=== PATIENT | male | born 1965 | race Caucasian/White ===

== ENCOUNTER 2017-11-19 22:53 | Inpatient (IN) | payer OTHER ==
[~2017-11-19] VITALS: Ht 177.8 cm; Wt 60.4 kg
--- NOTE | ~2017-11-19 | O ---
[place], [place] OPERATIVE NOTE [id number] UNIT #: [id number] ROOM: [place] [address] DOCTOR: MICHAEL BARROSO MD BIRTHDATE: [birth year] DOS: 11/20/2017 PREOPERATIVE DIAGNOSIS: Perforated viscus. POSTOPERATIVE DIAGNOSIS: Perforated duodenal ulcer. PROCEDURES: Exploratory laparotomy, repair of perforated duodenal ulcer with a Osito patch. SURGEON: Michael Barroso MD MANAGER CULTURE: MSThomas. ANESTHESIA: GET. INDICATIONS: This is a 52-year-old gentleman with a known history of peptic ulcer disease, who came into the Emergency Room with increasing abdominal pain. A CAT scan revealed perforated viscus. After resuscitation, the patient was taken to the operating room in an urgent fashion for repair. The procedure and its complications were explained to the patient in detail preoperatively. Complications that were discussed included but were not limited to bleeding, abscess formation, prolonged postoperative pain, damage to underlying vital structures and incisional hernia formation. He agreed to proceed. DESCRIPTION OF PROCEDURE: After identifying the patient, the patient was brought to the operating suite and laid in the supine position. After general anesthesia was induced by the anesthesia team, a timeout procedure was called. A Kulkarni catheter was placed into the urinary bladder and the parts were then painted and draped in the usual sterile fashion. An upper midline incision was made. The skin and the subcutaneous tissue were incised. The fascia was incised and the peritoneum was opened. The areas around the pylorus and the liver were found to have a lot of fibular purulent material and upon further dissection an obvious perforated ulcer was found on the anterior part of the second part of the duodenum. The prepyloric ulceration was found and a perforation was seen. This area was freshened by excising tissue around the ulcer and sent for histopathological diagnosis. Thereafter, the ulcer itself was approximated by taking sutures with 3-0 silk in an interrupted fashion. After the sutures were tied, a patch of omentum was brought over and enclosed in the suture line in order to further strengthen the repair. Thereafter, copious amounts of saline was used for irrigation and after hemostasis was confirmed, the fascia was approximated with the help of 0 PDS in a running fashion. The skin edges were infiltrated with 1% plain lidocaine and approximated with the help of shivani. Dressing was placed. The patient tolerated the procedure well and was extubated and brought back to the recovery room in stable fashion. There were no complications. Dr. Michael Barroso, the attending surgeon, was present throughout the operating case. Blood loss was less than 50 mL. [place], [place] OPERATIVE NOTE NAME: KENNY MENDEZ UNIT #: [id number] ROOM: [place] [address] DOCTOR: MICHAEL BARROSO MD BIRTHDATE: [birth year] Michael Barrsoo MD CM:OPRECORD:OPERATIVE NOTE [id number] MICHAEL BARROSO MD 11/20/17 0902 interface
[~2017-11-19 22:53] MED LIST: PROTONIX40 MG PO
[2017-11-19 23:00] VITALS: BP 109/62
[2017-11-19 23:37] LABS: BASO # 0.1 10*3/uL (0.0-0.1); BASO % 0.3 % (0.0-1.0); EOS # 0.1 10*3/uL (0.0-0.4); EOS % 0.6 % (1.0-4.0); HEMATOCRIT 47.9 % (42.0-52.0); HEMOGLOBIN 16.2 g/dl (14.0-18.0); LYMPH # 1.5 10*3/uL (1.3-4.4); LYMPH % 7.1 % (27.0-41.0); MEAN CELL VOLUME 93.2 fl (80.0-94.0); MEAN CORPUSCULAR HGB 31.5 pg (27.0-31.0); MEAN CORPUSCULAR HGB CONC 33.8 g/dl (33.0-37.0); MEAN PLATELET VOLUME 10.9 fl (9.6-12.3); MONO # 1.1 10*3/uL (0.1-1.0); NEUT # 18.4 10*3/uL (2.3-7.9); NEUT % 86.6 % (47.0-73.0); PLATELET COUNT AUTOMATED 209 10*3/uL (130-400); RED BLOOD COUNT 5.14 10*6/uL (4.50-5.90); RED CELL DISTRI WIDTH 14.1 % (0-14.5); WHITE BLOOD COUNT 21.2 10*3/uL (4.8-10.8)
[2017-11-19 23:52] LABS: ALBUMIN 4.2 gm/dl (3.1-4.5); ALKALINE PHOSPHATASE 86 U/L (45-117); BUN 19 mg/dl (7-24); CHLORIDE 98 mmol/L (98-107); CREATININE 1.05 mg/dL (0.70-1.30); LIPASE 95 U/L (73-393); POTASSIUM 4.4 mmol/L (3.5-5.1); SGOT/AST 9 IU/L (3-35); SGPT/ALT 16 U/L (12-78); SODIUM 132 mmol/L (136-145); TOTAL PROTEIN 7.5 gm/dL (6.4-8.2)
[2017-11-19 23:57] LABS: BILIRUBIN 1+ (NEGATIVE); BLOOD NEGATIVE (NEGATIVE); CLARITY SL CLOUDY (CLEAR); COLOR YELLOW (YELLOW); GLUCOSE NEGATIVE (NEGATIVE); KETONE NEGATIVE (NEGATIVE); LEUKO ESTERASE NEGATIVE (NEGATIVE); NITRITE NEGATIVE (NEGATIVE); SPECIFIC GRAVITY >= 1.030 (1.005-1.030); UROBILINOGEN 0.2 E.U./dl (0.2-1.0)
[2017-11-20] VITALS (17 sets, daily range): BP systolic 100–141; BP diastolic 47–76
[2017-11-20 00:02] LABS: HYALINE CAST 35-40
[2017-11-20 00:03] LABS: WBC 0-2 wbc/hpf (0-5)
[2017-11-20 00:04] LABS: MUCOUS 1+
[2017-11-20 00:28] LABS: URINE AMPHETAMINES < 1000 (1000ng/ml); URINE BARBITURATES < 200 (200ng/ml); URINE BENZODIAZEPINES < 200 (200ng/ml); URINE CANNABINOIDS (THC) < 50 (50ng/ml); URINE COCAINE < 300 (300ng/ml); URINE METHADONE < 300 (300ng/ml); URINE OPIATES > 300 (300ng/ml)
[2017-11-20 00:29] LABS: URINE PHENCYCLIDINE < 25 (25ng/ml)
[2017-11-20 04:36] LABS: ACT PARTIAL THROMBO TIME 22.8 SECONDS (20.8-31.5); INTERNATIONAL NORM RATIO 1.1 (2.0-3.5)
[2017-11-20 04:53] LABS: ALBUMIN 3.3 gm/dl (3.1-4.5); ALKALINE PHOSPHATASE 71 U/L (45-117); BUN 15 mg/dl (7-24); CHLORIDE 104 mmol/L (98-107); CHOLESTEROL 146 mg/dL (<200); CREATININE 0.99 mg/dL (0.70-1.30); PHOSPHOROUS 3.4 mg/dL (2.5-4.9); POTASSIUM 4.2 mmol/L (3.5-5.1); SGOT/AST 15 IU/L (3-35); SGPT/ALT 19 U/L (12-78); SODIUM 136 mmol/L (136-145); TOTAL PROTEIN 6.3 gm/dL (6.4-8.2); TRIGLYCERIDES 65 mg/dl (<150); VLDL CHOLESTEROL 13 mg/dL (6-40)
[2017-11-20 04:59] LABS: HDL CHOLESTEROL 31 mg/dl (40-60); LDL CHOLESTEROL 102 mg/dL (9-159); THYROID STIM HORMONE (HS) 0.383 uIU/ml (0.358-4.75)
[2017-11-20 05:54] LABS: HEMATOCRIT 46.1 % (42.0-52.0); HEMOGLOBIN 15.2 g/dl (14.0-18.0); MEAN CELL VOLUME 95.6 fl (80.0-94.0); MEAN CORPUSCULAR HGB 31.5 pg (27.0-31.0); MEAN PLATELET VOLUME 11.7 fl (9.6-12.3); PLATELET COUNT AUTOMATED 169 10*3/uL (130-400); RED BLOOD COUNT 4.82 10*6/uL (4.50-5.90); RED CELL DISTRI WIDTH 14.3 % (0-14.5); WHITE BLOOD COUNT 14.6 10*3/uL (4.8-10.8)
[2017-11-20 06:53] LABS: ATYPICAL LYMPHS 1 % (0-0); BURR CELLS FEW; PLATELET SUFFICIENCY NORMAL (NORMAL); TOTAL CELLS COUNTED 100 #CELLS
[2017-11-20 07:08] LABS: VITAMIN D, 25-HYDROXY 18.8 ng/mL (30-100)
[2017-11-21] VITALS: BP 123/73
[2017-11-21 04:00] VITALS: BP 120/82
[2017-11-21 05:44] LABS: ALBUMIN 2.8 gm/dl (3.1-4.5); ALKALINE PHOSPHATASE 62 U/L (45-117); BUN 14 mg/dl (7-24); CHLORIDE 106 mmol/L (98-107); CREATININE 1.02 mg/dL (0.70-1.30); POTASSIUM 3.8 mmol/L (3.5-5.1); SGOT/AST 17 IU/L (3-35); SGPT/ALT 16 U/L (12-78); SODIUM 138 mmol/L (136-145); TOTAL PROTEIN 6.1 gm/dL (6.4-8.2)
[2017-11-21 05:48] LABS: BASO % 0.1 % (0.0-1.0); EOS % 0.1 % (1.0-4.0); HEMATOCRIT 41.9 % (42.0-52.0); HEMOGLOBIN 13.9 g/dl (14.0-18.0); LYMPH # 1.4 10*3/uL (1.3-4.4); MEAN CELL VOLUME 93.7 fl (80.0-94.0); MEAN CORPUSCULAR HGB 31.1 pg (27.0-31.0); MEAN CORPUSCULAR HGB CONC 33.2 g/dl (33.0-37.0); MEAN PLATELET VOLUME 11.9 fl (9.6-12.3); MONO # 0.9 10*3/uL (0.1-1.0); MONO % 5.6 % (3.0-9.0); NEUT # 12.8 10*3/uL (2.3-7.9); NEUT % 84.4 % (47.0-73.0); PLATELET COUNT AUTOMATED 155 10*3/uL (130-400); RED BLOOD COUNT 4.47 10*6/uL (4.50-5.90); RED CELL DISTRI WIDTH 14.5 % (0-14.5); WHITE BLOOD COUNT 15.2 10*3/uL (4.8-10.8)
[2017-11-21 08:00] VITALS: BP 131/74
[2017-11-21 12:00] VITALS: BP 128/69
[2017-11-21 16:00] VITALS: BP 100/47
[2017-11-21 20:00] VITALS: BP 140/80
[2017-11-22] VITALS: BP 149/72
[2017-11-22 06:19] LABS: BASO % 0.2 % (0.0-1.0); EOS % 0.1 % (1.0-4.0); HEMATOCRIT 41.1 % (42.0-52.0); HEMOGLOBIN 13.8 g/dl (14.0-18.0); LYMPH # 1.4 10*3/uL (1.3-4.4); LYMPH % 9.7 % (27.0-41.0); MEAN CELL VOLUME 92.6 fl (80.0-94.0); MEAN CORPUSCULAR HGB 31.1 pg (27.0-31.0); MEAN CORPUSCULAR HGB CONC 33.6 g/dl (33.0-37.0); MEAN PLATELET VOLUME 11.9 fl (9.6-12.3); MONO # 0.8 10*3/uL (0.1-1.0); MONO % 5.5 % (3.0-9.0); NEUT # 11.8 10*3/uL (2.3-7.9); NEUT % 83.9 % (47.0-73.0); PLATELET COUNT AUTOMATED 160 10*3/uL (130-400); RED BLOOD COUNT 4.44 10*6/uL (4.50-5.90); WHITE BLOOD COUNT 14.1 10*3/uL (4.8-10.8)
[2017-11-22 06:38] LABS: BUN 15 mg/dl (7-24); CHLORIDE 104 mmol/L (98-107); CREATININE 0.88 mg/dL (0.70-1.30); POTASSIUM 3.6 mmol/L (3.5-5.1); SODIUM 137 mmol/L (136-145)
[2017-11-22 08:00] VITALS: BP 139/66
[2017-11-22 12:00] VITALS: BP 131/85
[2017-11-22 16:00] VITALS: BP 135/76
[2017-11-22 20:06] VITALS: BP 137/83
[2017-11-23] VITALS: BP 126/88
[2017-11-23 07:10] LABS: BASO % 0.4 % (0.0-1.0); EOS # 0.2 10*3/uL (0.0-0.4); EOS % 2.1 % (1.0-4.0); HEMATOCRIT 44.2 % (42.0-52.0); HEMOGLOBIN 14.7 g/dl (14.0-18.0); LYMPH # 1.5 10*3/uL (1.3-4.4); LYMPH % 13.9 % (27.0-41.0); MEAN CELL VOLUME 92.5 fl (80.0-94.0); MEAN CORPUSCULAR HGB 30.8 pg (27.0-31.0); MEAN CORPUSCULAR HGB CONC 33.3 g/dl (33.0-37.0); MEAN PLATELET VOLUME 11.6 fl (9.6-12.3); MONO # 0.7 10*3/uL (0.1-1.0); MONO % 5.9 % (3.0-9.0); NEUT # 8.5 10*3/uL (2.3-7.9); NEUT % 77.3 % (47.0-73.0); PLATELET COUNT AUTOMATED 189 10*3/uL (130-400); RED BLOOD COUNT 4.78 10*6/uL (4.50-5.90); RED CELL DISTRI WIDTH 13.9 % (0-14.5)
[2017-11-23 07:39] LABS: BUN 13 mg/dl (7-24); CHLORIDE 103 mmol/L (98-107); CREATININE 0.93 mg/dL (0.70-1.30); POTASSIUM 3.1 mmol/L (3.5-5.1); SODIUM 138 mmol/L (136-145)
[2017-11-23 08:00] VITALS: BP 119/75
[2017-11-23] MEDS ORDERED: PROTONIX40 MG PO (12:11)
[2017-11-23] MEDS ORDERED: PEPCID20 MG PO (12:11)
[2017-11-23] MEDS ORDERED: LEVAQUIN750 M1 PO (12:11)
[2017-11-23] MEDS ORDERED: NORCO 5-325 TA1 EACH PO (12:13)
== END 2017-11-23 13:06 | disposition home or self-care (01) | DRG 853 ==
LOC: ED 22:53 → EDHOLD 11-20 02:35 → 4E 11-20 02:35 → ICCU 11-20 02:35 → 4E 11-21 17:31
PROVIDERS: Internal Medicine; Nurse Practitioner; Surgery
PROC: 0DU907Z Supplement Duodenum with Autologous Tissue Substitute, Open Approach (ICD-10-PCS; principal; 2017-11-20)
DX: A41.9 Sepsis, unspecified organism (principal); K26.5 Chronic or unspecified duodenal ulcer with perforation; I95.9 Hypotension, unspecified; R82.2 Biliuria; E87.1 Hypo-osmolality and hyponatremia; R65.20 Severe sepsis without septic shock; K59.00 Constipation, unspecified; R00.1 Bradycardia, unspecified; F11.10 Opioid abuse, uncomplicated; E78.5 Hyperlipidemia, unspecified; R73.9 Hyperglycemia, unspecified; F12.90 Cannabis use, unspecified, uncomplicated; Z72.0 Tobacco use; Z71.6 Tobacco abuse counseling; Z87.11 Personal history of peptic ulcer disease; Z88.0 Allergy status to penicillin; Z83.3 Family history of diabetes mellitus; Z82.49 Family history of ischemic heart disease and other diseases of the circulatory system; Z80.8 Family history of malignant neoplasm of other organs or systems

== ENCOUNTER → 2017-12-04 | Outpatient (CLI) | payer OTHER ==
[~2017-12-04] MED LIST changes: +LEVAQUIN750 M1 PO; +NORCO 5-325 TA1 EACH PO; +PEPCID20 MG PO
== END | disposition home or self-care (01) ==
LOC: RESCLI 02:02
DX: K26.5 Chronic or unspecified duodenal ulcer with perforation (principal); R63.6 Underweight; I95.9 Hypotension, unspecified; E55.9 Vitamin D deficiency, unspecified; R73.03 Prediabetes; F12.90 Cannabis use, unspecified, uncomplicated; F11.90 Opioid use, unspecified, uncomplicated; F17.210 Nicotine dependence, cigarettes, uncomplicated; Z71.6 Tobacco abuse counseling

== ENCOUNTER 2018-08-21 15:58 | Inpatient (IN) | payer OTHER ==
[~2018-08-21] VITALS: Ht 180.3 cm; Wt 61.2 kg
--- NOTE | ~2018-08-21 | EKG ---
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
[2018-08-21 15:58] VITALS: BP 138/88
[2018-08-21 16:28] VITALS: BP 127/79
[2018-08-21 16:42] LABS: BASO # 0.1 10*3/uL (0.0-0.1); BASO % 0.7 % (0.0-1.0); EOS # 0.2 10*3/uL (0.0-0.4); EOS % 2.1 % (1.0-4.0); HEMATOCRIT 51.5 % (42.0-52.0); HEMOGLOBIN 16.6 g/dl (14.0-18.0); LYMPH # 1.7 10*3/uL (1.3-4.4); LYMPH % 21.2 % (27.0-41.0); MEAN CELL VOLUME 98.3 fl (80.0-94.0); MEAN CORPUSCULAR HGB 31.7 pg (27.0-31.0); MEAN CORPUSCULAR HGB CONC 32.2 g/dl (33.0-37.0); MEAN PLATELET VOLUME 10.8 fl (9.6-12.3); MONO # 0.5 10*3/uL (0.1-1.0); MONO % 5.6 % (3.0-9.0); NEUT # 5.7 10*3/uL (2.3-7.9); NEUT % 69.7 % (47.0-73.0); PLATELET COUNT AUTOMATED 265 10*3/uL (130-400); RED BLOOD COUNT 5.24 10*6/uL (4.50-5.90); RED CELL DISTRI WIDTH 15.2 % (0-14.5); WHITE BLOOD COUNT 8.2 10*3/uL (4.8-10.8)
[2018-08-21 16:57] LABS: ALBUMIN 3.6 gm/dl (3.1-4.5); ALKALINE PHOSPHATASE 115 U/L (45-117); BUN 11 mg/dl (7-24); CHLORIDE 106 mmol/L (98-107); CREATININE 1.17 mg/dL (0.70-1.30); LIPASE 405 U/L (73-393); POTASSIUM 4.4 mmol/L (3.5-5.1); SGOT/AST 42 IU/L (3-35); SGPT/ALT 28 U/L (12-78); SODIUM 140 mmol/L (136-145); TOTAL PROTEIN 8.1 gm/dL (6.4-8.2)
[2018-08-21 16:59] LABS: TROPONIN I < 0.015 ng/ml (<0.045)
[2018-08-21 17:19] VITALS: BP 111/68
[2018-08-21 17:40] VITALS: BP 113/70
[2018-08-21 18:09] VITALS: BP 121/76
[2018-08-21 18:43] VITALS: BP 114/84
[2018-08-21 22:02] LABS: URINE AMPHETAMINES < 1000 (1000ng/ml); URINE BARBITURATES < 200 (200ng/ml); URINE BENZODIAZEPINES < 200 (200ng/ml); URINE CANNABINOIDS (THC) < 50 (50ng/ml); URINE COCAINE < 300 (300ng/ml); URINE METHADONE < 300 (300ng/ml); URINE OPIATES > 300 (300ng/ml)
[2018-08-21 22:03] LABS: URINE PHENCYCLIDINE < 25 (25ng/ml)
[2018-08-22] VITALS: BP 106/70
[2018-08-22 00:23] LABS: BILIRUBIN NEGATIVE (NEGATIVE); BLOOD NEGATIVE (NEGATIVE); CLARITY CLEAR (CLEAR); COLOR YELLOW (YELLOW); GLUCOSE 1+ (NEGATIVE); KETONE NEGATIVE (NEGATIVE); LEUKO ESTERASE NEGATIVE (NEGATIVE); NITRITE NEGATIVE (NEGATIVE); SPECIFIC GRAVITY 1.025 (1.005-1.030); UROBILINOGEN 0.2 E.U./dl (0.2-1.0)
[2018-08-22 00:30] LABS: RBC 0-2 rbc/hpf (0-2); WBC 0-2 wbc/hpf (0-5)
[2018-08-22 04:00] VITALS: BP 110/70
[2018-08-22 04:34] LABS: BASO % 0.3 % (0.0-1.0); EOS # 0.1 10*3/uL (0.0-0.4); EOS % 0.9 % (1.0-4.0); HEMATOCRIT 47.4 % (42.0-52.0); HEMOGLOBIN 15.3 g/dl (14.0-18.0); LYMPH # 2.6 10*3/uL (1.3-4.4); LYMPH % 20.3 % (27.0-41.0); MEAN CORPUSCULAR HGB 31.9 pg (27.0-31.0); MEAN CORPUSCULAR HGB CONC 32.3 g/dl (33.0-37.0); MEAN PLATELET VOLUME 10.6 fl (9.6-12.3); MONO # 0.9 10*3/uL (0.1-1.0); MONO % 6.7 % (3.0-9.0); NEUT # 9.3 10*3/uL (2.3-7.9); NEUT % 71.5 % (47.0-73.0); PLATELET COUNT AUTOMATED 246 10*3/uL (130-400); RED BLOOD COUNT 4.79 10*6/uL (4.50-5.90); RED CELL DISTRI WIDTH 15.4 % (0-14.5); WHITE BLOOD COUNT 12.9 10*3/uL (4.8-10.8)
[2018-08-22 04:46] LABS: ACT PARTIAL THROMBO TIME 25.8 SECONDS (20.8-31.5)
[2018-08-22 04:57] LABS: ALBUMIN 3.1 gm/dl (3.1-4.5); BUN 13 mg/dl (7-24); CHLORIDE 105 mmol/L (98-107); CHOLESTEROL 197 mg/dL (<200); CREATININE 0.91 mg/dL (0.70-1.30); PHOSPHOROUS 4.6 mg/dL (2.5-4.9); POTASSIUM 4.5 mmol/L (3.5-5.1); SGOT/AST 15 IU/L (3-35); SGPT/ALT 23 U/L (12-78); SODIUM 140 mmol/L (136-145); TRIGLYCERIDES 107 mg/dl (<150); VLDL CHOLESTEROL 21 mg/dL (6-40)
[2018-08-22 05:03] LABS: ALKALINE PHOSPHATASE 97 U/L (45-117); FREE T4 1.03 ng/dl (0.76-1.46); HDL CHOLESTEROL 40 mg/dl (40-60); LDL CHOLESTEROL 136 mg/dL (9-159); THYROID STIM HORMONE (HS) 0.326 uIU/ml (0.358-4.75)
[2018-08-22 07:40] LABS: VITAMIN D, 25-HYDROXY 17.9 ng/mL (30-100)
[2018-08-22 08:00] VITALS: BP 113/73
[2018-08-22 12:00] VITALS: BP 102/65
[2018-08-22 16:00] VITALS: BP 95/72
[2018-08-22 20:00] VITALS: BP 106/70
[2018-08-23] VITALS: BP 120/67
[2018-08-23 08:00] VITALS: BP 124/72
[2018-08-23] MEDS ORDERED: PREDNISONE50 MG PO (11:43)
[2018-08-23] MEDS ORDERED: MUCINEX DM ER1 EACH PO (11:43)
[2018-08-23] MEDS ORDERED: PROAIR HFA8.5 GM INH (11:43)
[2018-08-23 12:00] VITALS: BP 106/70
[2018-09-30] MEDS ORDERED: METHOCARBAMOL750 M1 PO (08:56)
== END 2018-08-23 14:00 | disposition home or self-care (01) | DRG 917 ==
LOC: ED 15:58 → EDHOLD 18:02 → ICCU 18:02 → 4E 18:02 → ICCU 18:27 → 4E 08-22 17:17
PROVIDERS: Emergency Medicine; Family Medicine; Internal Medicine; ADMIT Internal Medicine
DX: T40.1X1A Poisoning by heroin, accidental (unintentional), initial encounter (principal); J96.00 Acute respiratory failure, unspecified whether with hypoxia or hypercapnia; F12.90 Cannabis use, unspecified, uncomplicated; F17.210 Nicotine dependence, cigarettes, uncomplicated; Z83.3 Family history of diabetes mellitus; Z82.49 Family history of ischemic heart disease and other diseases of the circulatory system; R74.0 Nonspecific elevation of levels of transaminase and lactic acid dehydrogenase [LDH]; D75.89 Other specified diseases of blood and blood-forming organs; K59.00 Constipation, unspecified; V87.7XXA Person injured in collision between other specified motor vehicles (traffic), initial encounter; Y92.89 Other specified places as the place of occurrence of the external cause

== ENCOUNTER 2018-08-26 15:41 | Inpatient (IN) | payer OTHER ==
[~2018-08-26] VITALS: Ht 180.3 cm; Wt 54.7 kg
[~2018-08-26 15:41] MED LIST changes: +MUCINEX DM ER1 EACH PO; +PREDNISONE50 MG PO; +PROAIR HFA8.5 GM INH
[2018-08-26 17:13] VITALS: BP 104/80
[2018-08-26 18:44] LABS: BASO # 0.1 10*3/uL (0.0-0.1); BASO % 0.7 % (0.0-1.0); EOS # 0.1 10*3/uL (0.0-0.4); EOS % 1.3 % (1.0-4.0); HEMATOCRIT 48.6 % (42.0-52.0); HEMOGLOBIN 16.4 g/dl (14.0-18.0); LYMPH # 2.6 10*3/uL (1.3-4.4); LYMPH % 28.6 % (27.0-41.0); MEAN CELL VOLUME 93.8 fl (80.0-94.0); MEAN CORPUSCULAR HGB 31.7 pg (27.0-31.0); MEAN CORPUSCULAR HGB CONC 33.7 g/dl (33.0-37.0); MEAN PLATELET VOLUME 11.1 fl (9.6-12.3); MONO # 0.7 10*3/uL (0.1-1.0); MONO % 7.1 % (3.0-9.0); NEUT # 5.7 10*3/uL (2.3-7.9); NEUT % 61.8 % (47.0-73.0); PLATELET COUNT AUTOMATED 265 10*3/uL (130-400); RED BLOOD COUNT 5.18 10*6/uL (4.50-5.90); RED CELL DISTRI WIDTH 15.2 % (0-14.5); WHITE BLOOD COUNT 9.2 10*3/uL (4.8-10.8)
[2018-08-26 19:03] LABS: ALBUMIN 3.6 gm/dl (3.1-4.5); ALKALINE PHOSPHATASE 106 U/L (45-117); BUN 23 mg/dl (7-24); CHLORIDE 108 mmol/L (98-107); CREATININE 1.04 mg/dL (0.70-1.30); POTASSIUM 4.2 mmol/L (3.5-5.1); SGOT/AST 11 IU/L (3-35); SGPT/ALT 19 U/L (12-78); SODIUM 142 mmol/L (136-145); TOTAL PROTEIN 7.7 gm/dL (6.4-8.2)
[2018-08-26 19:04] LABS: ETHYL ALCOHOL < 3.0 mg/dl (<3)
[2018-08-26 19:32] LABS: URINE AMPHETAMINES < 1000 (1000ng/ml); URINE BARBITURATES < 200 (200ng/ml); URINE BENZODIAZEPINES < 200 (200ng/ml); URINE CANNABINOIDS (THC) < 50 (50ng/ml); URINE COCAINE < 300 (300ng/ml); URINE METHADONE < 300 (300ng/ml); URINE OPIATES < 300 (300ng/ml)
[2018-08-26 19:35] LABS: URINE PHENCYCLIDINE < 25 (25ng/ml)
[2018-08-26 19:36] LABS: BILIRUBIN NEGATIVE (NEGATIVE); BLOOD NEGATIVE (NEGATIVE); CLARITY SL CLOUDY (CLEAR); COLOR YELLOW (YELLOW); GLUCOSE NEGATIVE (NEGATIVE); KETONE TRACE (NEGATIVE); LEUKO ESTERASE NEGATIVE (NEGATIVE); NITRITE NEGATIVE (NEGATIVE); PH 6.5 (5.0-9.0)
[2018-08-26 19:49] LABS: BACTERIA 1+; EPITHELIAL CELLS 0-2; MUCOUS TRACE; RBC 0-2 rbc/hpf (0-2)
[2018-08-27] VITALS: BP 120/78
[2018-08-27 08:00] VITALS: BP 113/69; BP 132/72
[2018-08-27 12:00] VITALS: BP 112/71
[2018-08-27 16:00] VITALS: BP 105/74
[2018-08-27 20:00] VITALS: BP 119/76
[2018-08-28 12:00] VITALS: BP 108/61
[2018-08-28 16:00] VITALS: BP 139/80
[2018-08-29] VITALS: BP 111/73
[2018-08-29 06:59] LABS: BASO # 0.1 10*3/uL (0.0-0.1); BASO % 0.8 % (0.0-1.0); EOS # 0.2 10*3/uL (0.0-0.4); EOS % 2.4 % (1.0-4.0); HEMATOCRIT 47.3 % (42.0-52.0); HEMOGLOBIN 15.7 g/dl (14.0-18.0); LYMPH # 2.9 10*3/uL (1.3-4.4); LYMPH % 31.3 % (27.0-41.0); MEAN CELL VOLUME 95.6 fl (80.0-94.0); MEAN CORPUSCULAR HGB 31.7 pg (27.0-31.0); MEAN CORPUSCULAR HGB CONC 33.2 g/dl (33.0-37.0); MONO # 0.6 10*3/uL (0.1-1.0); NEUT # 5.3 10*3/uL (2.3-7.9); PLATELET COUNT AUTOMATED 259 10*3/uL (130-400); RED BLOOD COUNT 4.95 10*6/uL (4.50-5.90); RED CELL DISTRI WIDTH 15.5 % (0-14.5); WHITE BLOOD COUNT 9.2 10*3/uL (4.8-10.8)
[2018-08-29 07:15] LABS: CREATININE 0.89 mg/dL (0.70-1.30)
[2018-08-29 08:00] VITALS: BP 105/69
[2018-08-29] MEDS ORDERED: ROPINIROLE HYD0.5 MG PO (12:08)
[2018-09-30] MEDS ORDERED: METHOCARBAMOL750 M1 PO (08:56)
== END 2018-08-29 12:35 | disposition home or self-care (01) | DRG 897 ==
LOC: 5E 15:41
PROVIDERS: Internal Medicine; Internal Medicine Nephrology; ADMIT Internal Medicine
DX: F11.23 Opioid dependence with withdrawal (principal); G25.81 Restless legs syndrome; F17.210 Nicotine dependence, cigarettes, uncomplicated; R53.1 Weakness; E87.8 Other disorders of electrolyte and fluid balance, not elsewhere classified; Z71.6 Tobacco abuse counseling; Z83.3 Family history of diabetes mellitus; Z82.49 Family history of ischemic heart disease and other diseases of the circulatory system